=== PATIENT | male | born 1985 | race Caucasian/White ===

== ENCOUNTER 2017-03-11 17:20 | Observation (INO) | payer BC, SELFPAY ==
[~2017-03-11] VITALS: Ht 170.2 cm; Wt 98.7 kg
[~2017-03-11 17:20] MED LIST: predniSONE 20 MG TAB PO SCH
[2017-03-11] MEDS ORDERED: diphenhydrAMINE INJ 50MG/ML VIAL (J1200) IV STA (17:40)
[2017-03-11] MEDS ORDERED: methylPREDNISolone INJ 125 MG/2 ML VIAL (J2930) IV ONE (17:45)
[2017-03-11] MEDS ORDERED: NS 1,000 ML IV ONE (17:45)
[2017-03-11] MEDS ORDERED: FAMOTIDINE INJ 20MG/2ML VIAL (S0028) IVP ONE (17:45)
[2017-03-11] MEDS ORDERED: EPINEPHrine INJ 1 MG/ML 1ML AMP IM STA ×2 (18:43→21:23)
[2017-03-11] MEDS ORDERED: IPRATROPIUM 0.5MG/ALBUTEROL 2.5MG INH SOL UD 3ML (DUONEB)(J7620) NEB ONE (18:45)
[2017-03-11 18:59] LABS: BASO % 0.5 % (0.0-1.0); EOS # 0.2 K/mm3 (0.0-0.50); EOS % 2.6 % (0.0-3.0); LARGE UNSTAINED CELL # 0.3 K/mm3 (0.0-0.4); LARGE UNSTAINED CELL % 3.5 % (0.0-4.0); LYMPH # 4.1 K/mm3 (1.5-4.5); LYMPH % 42.7 % (24.0-44.0); MEAN CORPUSCULAR HEMOGLOBIN 30.8 pg (27.0-33.0); MEAN CORPUSCULAR HGB CONC 34.9 g/dl (32.0-36.5); MEAN CORPUSCULAR VOLUME 88.1 fl (80.0-96.0); MONO # 0.6 K/mm3 (0.0-0.8); MONO % 6.2 % (0.0-5.0); NEUTROPHILS % 44.6 % (36.0-66.0); PLATELET COUNT, AUTOMATED 259 k/mm3 (150-450); RED CELL DISTRIBUTION WIDTH 12.2 % (11.5-14.5); WHITE BLOOD COUNT 8.9 K/mm3 (4.0-10.0)
[2017-03-11 19:03] LABS: ANION GAP 9 MEQ/L (8-16); BLOOD UREA NITROGEN 12 MG/DL (7-18); CALCIUM LEVEL 9.3 MG/DL (8.5-10.1); CARBON DIOXIDE LEVEL 26 MEQ/L (21-32); CHLORIDE LEVEL 103 MEQ/L (98-107); CREATININE FOR GFR 1.02 MG/DL (0.70-1.30); GLOMERULAR FILTRATION RATE > 60.0 (>60); GLUCOSE, FASTING 124 MG/DL (70-105); POTASSIUM SERUM 3.6 MEQ/L (3.5-5.1); SODIUM LEVEL 138 MEQ/L (136-145)
--- NOTE | 2017-03-11 19:07 | REP ---
Clinical: Shortness of breath . Comparison: None . Technique: PA and lateral. Findings: The mediastinum and cardiac silhouette are normal. The lung majano are clear and without acute consolidation, effusion, or pneumothorax. The skeletal structures are intact and normal. Impression: 1. No acute cardiopulmonary process. Signed by Lj Eldridge MD 03/11/2017 06:58 P
--- NOTE | 2017-03-11 19:40 | ECGEPIP ---
Stationary ECG Study [facility] - ED Test Date: 2017-03-11 Pat Name: CHELLE MARROQUIN Department: Room: - Gender: M Scientist Engineer: chaz : [id number] Requested By: TONI Vila Order Number: [id number] Reading MD: Willi Gilman Measurements Intervals [place] Rate: 83 P: 53 WI: 128 QRS: 97 QRSD: 93 T: 43 QT: 362 QTc: 426 Interpretive Statements SINUS RHYTHM BORDERLINE RIGHT AXIS DEVIATION NO PRIORS Electronically Signed On 03-11-2017 19:40:07 EDT by Willi Gilman
[2017-03-11] MEDS ORDERED: CLAR10CA3 PO (21:55)
[2017-03-11] MEDS ORDERED: ONDANSETRON 4MG/2ML VIAL (J2405) IV PRN (22:45)
[2017-03-11] MEDS ORDERED: ACETAMINOPHEN TAB 650MG DOSE (2X325MG) PO PRN (22:45)
[2017-03-11] MEDS ORDERED: LORATADINE 10 MG TAB PO PRN (22:45)
[2017-03-12] VITALS: BP 126/75
[2017-03-12] MEDS ORDERED: diphenhydrAMINE INJ 50MG/ML VIAL (J1200) IV SCH
[2017-03-12] MEDS ORDERED: LORATADINE 10 MG TAB PO ONE (02:15)
[2017-03-12] MEDS ORDERED: diphenhydrAMINE INJ 50MG/ML VIAL (J1200) IV ONE (02:15)
[2017-03-12 05:44] VITALS: BP 143/86
[2017-03-12] MEDS: diphenhydrAMINE INJ 50MG/ML VIAL (J1200) IV SCH ×2 (06:29→11:57)
[2017-03-12 06:59] LABS: BASO % 0.1 % (0.0-1.0); EOS # 0.1 K/mm3 (0.0-0.50); EOS % 0.6 % (0.0-3.0); LARGE UNSTAINED CELL # 0.1 K/mm3 (0.0-0.4); LARGE UNSTAINED CELL % 0.5 % (0.0-4.0); LYMPH % 6.2 % (24.0-44.0); MEAN CORPUSCULAR HEMOGLOBIN 30.7 pg (27.0-33.0); MEAN CORPUSCULAR HGB CONC 34.4 g/dl (32.0-36.5); MEAN CORPUSCULAR VOLUME 89.3 fl (80.0-96.0); MONO # 0.4 K/mm3 (0.0-0.8); MONO % 2.4 % (0.0-5.0); NEUTROPHILS # 13.6 K/mm3 (1.8-7.7); NEUTROPHILS % 90.2 % (36.0-66.0); PLATELET COUNT, AUTOMATED 237 k/mm3 (150-450); RED CELL DISTRIBUTION WIDTH 12.4 % (11.5-14.5); WHITE BLOOD COUNT 15.1 K/mm3 (4.0-10.0)
[2017-03-12 07:19] LABS: ANION GAP 9 MEQ/L (8-16); BLOOD UREA NITROGEN 12 MG/DL (7-18); CALCIUM LEVEL 8.6 MG/DL (8.5-10.1); CARBON DIOXIDE LEVEL 23 MEQ/L (21-32); CHLORIDE LEVEL 105 MEQ/L (98-107); CREATININE FOR GFR 1.07 MG/DL (0.70-1.30); GLOMERULAR FILTRATION RATE > 60.0 (>60); GLUCOSE, FASTING 163 MG/DL (70-105); POTASSIUM SERUM 4.2 MEQ/L (3.5-5.1); SODIUM LEVEL 137 MEQ/L (136-145)
[2017-03-12 08:00] VITALS: BP 136/88
[2017-03-12] MEDS ORDERED: predniSONE 20 MG TAB PO ONE (08:00)
--- NOTE | 2017-03-12 08:00 | HPEPDOC ---
General Date of Admission Mar 11, 2017 at 22:32 Attending Physician: STARR DIAZ DO Chief Complaint The patient is a 31-year-old male admitted with a reason for visit of Allergic Reaction. Source: Patient Exam Limitations: No limitations History of Present Illness This is a 31-year-old male admitted with PMH of childhood asthma and bee-sting allergy who presents with diffuse urticarial rash and wheezing after bee-sting on day of admit. Pt has hx of bee-sting allergy and has had 3 prior episodes of being stung. Those previous episodes resolved after presenting to the ED and receiving a shot of epinephrine. This episode did improve after initially receiving solumedrol 125mg iv, pepcid 20mg and benadryl 50mg. Soon after though it returned. At that point pt received epinephrine x2, but was still having sx of rash and mild wheeze. At that point medicine called for admit. Pt placed on standing benadryl 25mg iv q6h, pepcide 20mg bid and prednisone 40mg. Upon arrival to floor, pt did have recurrence of his rash, with mild pruritis. Pt reports this has never happened in past, does not normally follow with an binding cutter. Home Medications Scheduled PRN Loratadine (Claritin) 10 Mg Cap, 10 MG PO DAILY PRN for ALLERGIES, (Reported) Allergies Coded Allergies: No Known Allergies (Unverified , 03/11/17) Past Medical History Medical History 1. Childhood asthma. 2. Bee-sting allergy (urticarial) Family History Father: 1. CAD 2. HTN. Social History * Smoker: Denies Alcohol: other (6 beers) Drugs: marijuana Physical Examination General Exam: Positive: Alert, No Acute Distress Eye Exam: Positive: Conjunctiva & lids normal, Negative: Sclera icteric ENT Exam: Positive: Atraumatic, Mucous membr. moist/pink Neck Exam: Positive: Supple, Negative: Lymphadenopathy Chest Exam: Positive: Clear to auscultation, Normal air movement, Negative: Rales, Rhonchi, Wheezing Heart Exam: Positive: Rate Normal, Regular Rhythm, Normal S1, Normal S2, Negative: Tachycardic, Bradycardic, Gallops, Murmurs, Rubs Abdomen Exam: Positive: Normal bowel sounds, Soft, Negative: BS Hyperactive, BS Hypoactive, Tenderness, Hepatospenomegaly Extremity Exam: Negative: Clubbing, Cyanosis, Edema Skin Exam: Positive: Nl turgor and temperature, Rash (Macular-papular over chest with confluent non-raised blanching rash over extremities), Negative: Breakdown Neuro Exam: Positive: Normal Speech, Strength at 5/5 X4 ext, Cranial Nerves 3- 12 NL Psych Exam: Positive: Mental status NL, Mood NL, Oriented x 3 Vital Signs Vital Signs Date Time Temp Pulse Resp B/P (MAP) Pulse Ox O2 Delivery O2 Flow Rate FiO2 03/11/17 23:12 96 98 03/11/17 22:56 98.0 20 118/58 (78) Room Air Laboratory Data Labs 24H Laboratory Tests 2 03/11/17 17:34: White Blood Count 8.9, Red Blood Count 5.53, Hemoglobin 17.0, Hematocrit 48.8, Mean Corpuscular Volume 88.1, Mean Corpuscular Hemoglobin 30.8, Mean Corpuscular Hemoglobin Concent 34.9, Red Cell Distribution Width 12.2, Platelet Count 259, Neutrophils (%) (Auto) 44.6, Lymphocytes (%) (Auto) 42.7, Monocytes ( %) (Auto) 6.2H, Eosinophils (%) (Auto) 2.6, Basophils (%) (Auto) 0.5, Neutrophils # (Auto) 4.0, Lymphocytes # (Auto) 4.1, Monocytes # (Auto) 0.6, Eosinophils # (Auto) 0.2, Basophils # (Auto) 0.0, Large Unclassified Cells % 3.5 , Large Unclassified Cells # 0.3, Anion Gap 9, Glomerular Filtration Rate > 60.0 , Blood Urea Nitrogen 12, Creatinine 1.02, Sodium Level 138, Potassium Level 3.6 , Chloride Level 103, Carbon Dioxide Level 26, Calcium Level 9.3 CBC/BMP Laboratory Tests 03/11/17 17:34 Red Blood Count 5.53, Mean Corpuscular Volume 88.1, Mean Corpuscular Hemoglobin 30.8, Mean Corpuscular Hemoglobin Concent 34.9, Red Cell Distribution Width 12.2 , Neutrophils (%) (Auto) 44.6, Lymphocytes (%) (Auto) 42.7, Monocytes (%) (Auto ) 6.2 H, Eosinophils (%) (Auto) 2.6, Basophils (%) (Auto) 0.5, Neutrophils # ( Auto) 4.0, Lymphocytes # (Auto) 4.1, Monocytes # (Auto) 0.6, Eosinophils # (Auto ) 0.2, Basophils # (Auto) 0.0, Calcium Level 9.3 Assessment/Plan This is a 31-year-old male admitted with PMH of childhood asthma and bee-sting allergy who presents with diffuse urticarial rash and wheezing after bee-sting 1. Urticarial rash due to bee-sting Pt likely has atopy given his hx of childhood asthma Continue claritin 10mg daily Continue prednisone 40mg daily Continue pepcid 20mg po bid Initially started on benadryl 25mg iv [id number] to 50mg q6h after return of his rash on arrival to floor Can check trypsin/chymotrypsin and would consider outpt binding cutter f/u. 2. DVT prophylaxis Pt low risk-ambulation Plan / VTE VTE Prophylaxis Ordered?: No Luis Mahajan MD Mar 12, 2017 02:58
[2017-03-12] MEDS ORDERED: FAMOTIDINE 20 MG TAB PO SCH (09:00)
--- NOTE | 2017-03-12 10:23 | DS.PDOC ---
Discharge Summary General Date of Admission Mar 11, 2017 at 22:32 Date of Discharge 03-12-17 Discharge Summary PROCEDURES PERFORMED DURING STAY: None ADMITTING DIAGNOSES: 1. Uriticarial rash due to being stung by bee DISCHARGE DIAGNOSES: 1. Urticiaral rash 2/2 bee sting COMPLICATIONS/CHIEF COMPLAINT: Allergic Reaction. HISTORY OF PRESENT ILLNESS: 31 y/o male with past medical history of childhood asthma presented to ED on 03-11-17 with diffuse uritarcial rash after having been stung by a bee outside, associated with some wheezing and SOB. HOSPITAL COURSE: During the course of the stay the pt has been treated with steroids, benedryl and pepcid. Upon exam on day of d/c he reports feeling much better and verbalized that he "is ready to go home". Pt denied any further difficulty breathing, and states the rash has gone down significantly. He will be d/c with prednisone, benedryl and pepcid. He was instructed to follow up with PCP and sand mill operator core sand 7-10 days of d/c. DISCHARGE MEDICATIONS: Please see below. ALLERGIES: Please see below. PHYSICAL EXAMINATION ON DISCHARGE: VITAL SIGNS: Please see below. GENERAL: Pleasant, conversant, laying in bed in no distress HEENT: EOMI, PERRLA, nares patent b/l, neck supple, trachea midline NECK: supple CARDIOVASCULAR EXAMINATION: NSR, RRR, no murmurs, rubs or gallops appreciated RESPIRATORY EXAMINATION: CTA b/l, no wheezing, rales or rhonchi appreciated ABDOMINAL EXAMINATION: soft, non-distended, NABSx4, no rebound ridgity or guarding, no organomegaly EXTREMITIES: no cyanosis or edema SKIN: intact NEUROLOGICAL EXAMINATION: no focal deficits appreciated PSYCHIATRIC EXAMINATION: normal affect LABORATORY DATA: Please see below. IMAGING: CXR 03-11-17 Impression: 1. No acute cardiopulmonary process. PROGNOSIS: stable ACTIVITY: As tolerated DIET: as tolerated DISCHARGE PLAN: home DISPOSITION: stable DISCHARGE INSTRUCTIONS: 1. Follow with PCP within one week of d/c 2. Follow with sand mill operator core sand within ten days of d/c ITEMS TO FOLLOWUP ON ON OUTPATIENT: 1. PCP 2. Fire Prevention Chief DISCHARGE CONDITION: Stable TIME SPENT ON DISCHARGE: Greater than 20 minutes. Vital Signs/I&Os Vital Signs Date Time Temp Pulse Resp B/P (MAP) Pulse Ox O2 Delivery O2 Flow Rate FiO2 03/12/17 08:00 98.7 104 16 136/88 (104) 95 Room Air I&O- Last 24 Hours up to 6 AM 03/12/17 06:00 Intake Total 1350 ml Balance 1350 ml Laboratory Data Labs 24H Laboratory Tests 2 03/11/17 17:34: White Blood Count 8.9, Red Blood Count 5.53, Hemoglobin 17.0, Hematocrit 48.8, Mean Corpuscular Volume 88.1, Mean Corpuscular Hemoglobin 30.8, Mean Corpuscular Hemoglobin Concent 34.9, Red Cell Distribution Width 12.2, Platelet Count 259, Neutrophils (%) (Auto) 44.6, Lymphocytes (%) (Auto) 42.7, Monocytes ( %) (Auto) 6.2H, Eosinophils (%) (Auto) 2.6, Basophils (%) (Auto) 0.5, Neutrophils # (Auto) 4.0, Lymphocytes # (Auto) 4.1, Monocytes # (Auto) 0.6, Eosinophils # (Auto) 0.2, Basophils # (Auto) 0.0, Large Unclassified Cells % 3.5 , Large Unclassified Cells # 0.3, Anion Gap 9, Glomerular Filtration Rate > 60.0 , Blood Urea Nitrogen 12, Creatinine 1.02, Sodium Level 138, Potassium Level 3.6 , Chloride Level 103, Carbon Dioxide Level 26, Calcium Level 9.3 03/12/17 06:42: White Blood Count 15.1H, Red Blood Count 5.74, Hemoglobin 17.6, Hematocrit 51.3 , Mean Corpuscular Volume 89.3, Mean Corpuscular Hemoglobin 30.7, Mean Corpuscular Hemoglobin Concent 34.4, Red Cell Distribution Width 12.4, Platelet Count 237, Neutrophils (%) (Auto) 90.2H, Lymphocytes (%) (Auto) 6.2L, Monocytes (%) (Auto) 2.4, Eosinophils (%) (Auto) 0.6, Basophils (%) (Auto) 0.1, Neutrophils # (Auto) 13.6H, Lymphocytes # (Auto) 1.0L, Monocytes # (Auto) 0.4, Eosinophils # (Auto) 0.1, Basophils # (Auto) 0.0, Large Unclassified Cells % 0.5 , Large Unclassified Cells # 0.1, Anion Gap 9, Glomerular Filtration Rate > 60.0 , Blood Urea Nitrogen 12, Creatinine 1.07, Sodium Level 137, Potassium Level 4.2 , Chloride Level 105, Carbon Dioxide Level 23, Calcium Level 8.6 CBC/BMP Laboratory Tests 03/11/17 17:34 Red Blood Count 5.53, Mean Corpuscular Volume 88.1, Mean Corpuscular Hemoglobin 30.8, Mean Corpuscular Hemoglobin Concent 34.9, Red Cell Distribution Width 12.2 , Neutrophils (%) (Auto) 44.6, Lymphocytes (%) (Auto) 42.7, Monocytes (%) (Auto ) 6.2 H, Eosinophils (%) (Auto) 2.6, Basophils (%) (Auto) 0.5, Neutrophils # ( Auto) 4.0, Lymphocytes # (Auto) 4.1, Monocytes # (Auto) 0.6, Eosinophils # (Auto ) 0.2, Basophils # (Auto) 0.0, Calcium Level 9.3 03/12/17 06:42 Red Blood Count 5.74, Mean Corpuscular Volume 89.3, Mean Corpuscular Hemoglobin 30.7, Mean Corpuscular Hemoglobin Concent 34.4, Red Cell Distribution Width 12.4 , Neutrophils (%) (Auto) 90.2 H, Lymphocytes (%) (Auto) 6.2 L, Monocytes (%) ( Auto) 2.4, Eosinophils (%) (Auto) 0.6, Basophils (%) (Auto) 0.1, Neutrophils # ( Auto) 13.6 H, Lymphocytes # (Auto) 1.0 L, Monocytes # (Auto) 0.4, Eosinophils # (Auto) 0.1, Basophils # (Auto) 0.0, Calcium Level 8.6 Discharge Medications Scheduled Diphenhydramine HCl (Benadryl Allergy) 25 Mg Cap, 25-50 MG PO BID Famotidine (Pepcid) 20 Mg Tab, 20 MG PO Q12H Prednisone (Prednisone) 20 Mg Tab, 40 MG PO DAILY Scheduled PRN Loratadine (Claritin) 10 Mg Cap, 10 MG PO DAILY PRN for ALLERGIES, (Reported) Allergies Coded Allergies: No Known Allergies (Unverified , 03/11/17) GME ATTESTATION GME ATTESTATION My preceptor for this patient encounter was physically present in the building during the encounter and was fully available. As needed, all aspects of the patient interview, examination, medical decision making process, and medical care plan development were reviewed and approved by the preceptor. Preceptor is aware and concurs with the plan as stated in the body of this note and will attest to such by his/her cosignature. GME ATTESTATION GME ATTESTATION My preceptor for this patient encounter was physically present in the building during the encounter and was fully available. As needed, all aspects of the patient interview, examination, medical decision making process, and medical care plan development were reviewed and approved by the preceptor. Preceptor is aware and concurs with the plan as stated in the body of this note and will attest to such by his/her cosignature. SHREE BENNETT DO Mar 12, 2017 10:23
[2017-03-12] MEDS ORDERED: PRED50TA PO (10:32)
[2017-03-12] MEDS ORDERED: BENA25CA4 PO ×2 (10:32→11:14)
[2017-03-12] MEDS ORDERED: PEPC1TAB4 PO (10:32)
[2017-03-12] MEDS ORDERED: PRED20TA PO (11:10)
[2017-03-12] MEDS ORDERED: FAMO20TA PO (11:14)
[2017-03-13] MEDS ORDERED: predniSONE 20 MG TAB PO SCH (09:00)
== END 2017-03-12 12:20 | disposition home or self-care (01) ==
LOC: M ED 17:20 → M ED INP 22:32 → M PED 03-12
DX: L50.0 Allergic urticaria (principal); T63.441A Toxic effect of venom of bees, accidental (unintentional), initial encounter; R06.2 Wheezing; R06.02 Shortness of breath; J45.909 Unspecified asthma, uncomplicated
CPT/HCPCS: 36415; 71020; 80048; 85025; 93005; 93041; 94640; 94760; 96361; 96372; 96374; 96375; 96376; 99285; J1200; J2930

== ENCOUNTER 2018-03-24 11:52 | Emergency (ER) | payer OTHER, SELFPAY ==
[2018-03-24] MEDS: KETOROLAC 60 MG/2 ML VIAL (J1885) IM (13:49)
== END 2018-03-24 15:14 | disposition home or self-care (01) ==
LOC: M ED 11:52
DX: S39.002A Unspecified injury of muscle, fascia and tendon of lower back, initial encounter (principal); X58.XXXA Exposure to other specified factors, initial encounter; Y92.89 Other specified places as the place of occurrence of the external cause; J45.909 Unspecified asthma, uncomplicated
CPT/HCPCS: J1885

== ENCOUNTER 2020-01-30 16:13 | Emergency (ER) | payer OTHER, SELFPAY ==
[~2020-01-30] VITALS: Ht 170.2 cm; Wt 101.7 kg
[~2020-01-30 16:13] MED LIST changes: +BACL10TA2 PO; +BENA25CA4 PO; +CLAR10CA3 PO; +FAMO20TA PO; +HYDR-3715 PO; +PEPC1TAB5 PO; +PRED20TA PO; +PRED50TA PO; -predniSONE 20 MG TAB PO SCH
[2020-01-30] MEDS ORDERED: DIPH25CA32 PO (16:20)
[2020-01-30] MEDS ORDERED: CLAR5TAB11 PO (16:20)
[2020-01-30] MEDS ORDERED: diphenhydrAMINE 50MG/ML VIAL (J1200) IV STA (17:12)
[2020-01-30] MEDS ORDERED: methylPREDNISolone INJ 125 MG/2 ML VIAL (J2930) IV ONE (17:15)
[2020-01-30 17:25] VITALS: BP 135/73
== END 2020-01-30 17:36 | disposition home or self-care (01) ==
LOC: M ED 16:13
DX: T63.441A Toxic effect of venom of bees, accidental (unintentional), initial encounter (principal); Y92.89 Other specified places as the place of occurrence of the external cause; Z91.030 Bee allergy status; Z79.899 Other long term (current) drug therapy
CPT/HCPCS: 96374; 96375; 99284; J1200; J2930